=== PATIENT | female | born 1935 | race Caucasian/White ===

== ENCOUNTER 2016-11-01 12:56 | Outpatient (CLI) | payer MEDICARE, OTHER | END 2016-11-01 12:57 | disposition home or self-care (01) | DX: I50.9 Heart failure, unspecified (principal); I08.1 Rheumatic disorders of both mitral and tricuspid valves ==

== ENCOUNTER 2022-09-18 18:24 | Emergency (ER) | payer MEDICARE, OTHER ==
--- NOTE | 2022-09-18 18:42 | ED Physician Documentation ---
History of Present Illness - Stated complaint Stated Complaint: ANXIETY/SOA - Chief complaint Chief Complaint: General - History obtained from History obtained from: Patient - Additonal information Additional information: This is a verenice 87-year-old woman with history of breast cancer, coronary disease with three-vessel bypass approximately 5 to 6 years ago who presents after an episode of feeling out of it with some chest pressure and trouble breathing. She had gone out to dinner with her daughter, and early in the meal the daughter insinuated that she was "a terrible grandmother." After that for some time she felt out of it, numb all over weak and shaky. She is feeling mostly better now. This is never happened to her before. Review of Systems Ten Systems: 10 systems reviewed and negative Constitutional: denies: Fever, Chills Cardiac: reports: Chest pain / pressure. denies: Palpitations Respiratory: denies: Cough PD PAST MEDICAL HISTORY - Present Medications Home Medications: Ambulatory Orders Medication Instructions Recorded Confirmed Amlodipine Besylate [Norvasc] 2.5 mg PO DAILY 09/18/22 09/18/22 Aspirin Chewable [St Kian 1 tab PO DAILY 09/18/22 09/18/22 Aspirin] Levothyroxine Sodium [Levo-T] 1 tab PO DAILY 09/18/22 09/18/22 Metoprolol Tartrate [Lopressor] 25 mg PO DAILY 09/18/22 09/18/22 Pantoprazole Sodium 40 mg PO DAILY 09/18/22 09/18/22 Turmeric/Turmeric Root Extract 1 cap PO DAILY 09/18/22 09/18/22 [Turmeric 500 mg Capsule] - Allergies Allergies/Adverse Reactions: Allergies Allergy/AdvReac Type Severity Reaction Status Date / Time No Known Drug Allergies Allergy Verified 09/18/22 20:01 PD ED PE NORMAL - Vitals Vital signs reviewed: Yes - General General: Alert and oriented X 3, No acute distress - HEENT HEENT: PERRL, EOMI - Neck Neck: Supple, no meningeal sign, No bony TTP - Cardiac Cardiac: RRR, No murmur - Respiratory Respiratory: No respiratory distress, Clear bilaterally - Abdomen Abdomen: Non tender - Extremities Extremities: No edema, No calf tenderness / cord - Neuro Neuro: Alert and oriented X 3, cargo broker 2-12 intact, No motor deficit, No sensory deficit, Normal speech, Other (NIH stroke scale of 0) Eye Opening: Spontaneous Motor: Obeys Commands Verbal: Oriented GCS Score: 15 Results - Vitals Vitals: Vital Signs - 24 hr 09/18/22 09/18/22 09/18/22 18:19 19:50 21:09 Temperature 36.9 C 36.0 C L 37.0 C Heart Rate 73 64 75 Respiratory 11 L 19 18 Rate Blood Pressure 180/63 H 142/45 H 153/67 H O2 Saturation 100 100 100 Oxygen O2 Source Room air - EKG (time done) 1853 Rate: Rate (enter#) (73) Rhythm: NSR [place]: Normal Intervals: Normal LA QRS: Normal Ischemia: Non specific changes - Labs Labs: Laboratory Tests 09/18/22 09/18/22 09/18/22 18:59 18:59 18:59 WBC 6.2 RBC 3.96 L Hgb 11.8 L Hct 36.4 L MCV 91.9 MCH 29.8 MCHC 32.4 RDW 12.0 Plt Count 248 MPV 9.7 Neut # (Auto) 4.2 Lymph # (Auto) 1.3 L [place] # (Auto) 0.5 Eos # (Auto) 0.2 Baso # (Auto) 0.0 Absolute Nucleated RBC 0.00 Nucleated RBC % 0.0 Sodium 137 Potassium 4.0 Chloride 104 Carbon Dioxide 25 Anion Gap 8.0 BUN 27 H Creatinine 1.1 H Estimated GFR (MDRD) 47 L Glucose 151 H Calcium 9.1 Total Bilirubin 0.7 AST 22 ALT 24 Alkaline Phosphatase 51 Troponin I High Sens 15.5 H* Total Protein 6.9 Albumin 3.9 Globulin 3.0 Albumin/Globulin Ratio 1.3 Lipase 64 H 09/18/22 20:19 WBC RBC Hgb Hct MCV MCH MCHC RDW Plt Count MPV Neut # (Auto) Lymph # (Auto) [place] # (Auto) Eos # (Auto) Baso # (Auto) Absolute Nucleated RBC Nucleated RBC % Sodium Potassium Chloride Carbon Dioxide Anion Gap BUN Creatinine Estimated GFR (MDRD) Glucose Calcium Total Bilirubin AST ALT Alkaline Phosphatase Troponin I High Sens 16.5 H* Total Protein Albumin Globulin Albumin/Globulin Ratio Lipase PD MEDICAL DECISION MAKING - ED course ED course: 87-year-old woman presents after an episode most consistent with panic attack given the circumstances, has very mildly elevated troponin on initial evaluation, that said she has chronic renal insufficiency and no real ischemic sounding chest pain and this was repeated without significant interval change. Departure - Departure Disposition: 01 Home, Self Care Clinical Impression: Episode of altered cognition, Renal insufficiency Condition: Good Record reviewed to determine appropriate education?: Yes Comments: The cause of your episode is not completely clear, While it certainly could have been a panic attack, nothing else concerning was found. We did find that you have diminished kidney function, but looking back at old labs as far as 2005, this is not new. We did find a very mild elevation in your troponin level, only one-point above normal, this was rechecked and did not change significantly suggesting that it was from the chronic kidney disease. Call your doctor to arrange a follow-up appointment, make the next available appointment. In the interim, return anytime if worse or if new symptoms develop. Discharge Date/Time: 09/18/22 21:10
[2022-09-18 19:07] LABS: BASOPHILS % (AUTO) 0.7 %; EOSINOPHILS # (AUTO) 0.2 10^3/uL (0.0-0.7); EOSINOPHILS % (AUTO) 2.4 %; HCT - HEMATOCRIT 36.4 % (37.0-47.0); HGB - HEMOGLOBIN 11.8 g/dL (12.0-16.0); LYMPHOCYTES # (AUTO) 1.3 10^3/uL (1.5-3.5); LYMPHOCYTES % (AUTO) 21.8 %; MEAN CORPUSCULAR HEMOGLOBIN 29.8 pg (27.0-31.0); MEAN CORPUSCULAR HGB CONC 32.4 g/dL (32.0-36.0); MEAN CORPUSCULAR VOLUME 91.9 fL (81.0-99.0); MEAN PLATELET VOLUME 9.7 fL (7.9-10.8); MONOCYTES # (AUTO) 0.5 10^3/uL (0.0-1.0); MONOCYTES % (AUTO) 7.3 %; NEUTROPHILS # (AUTO) 4.2 10^3/uL (1.5-6.6); NEUTROPHILS % (AUTO) 67.5 %; PLT - PLATELET COUNT 248 10^3/uL (130-450); RED BLOOD COUNT 3.96 10^6/uL (4.20-5.40); WHITE BLOOD COUNT 6.2 x10^3/uL (4.8-10.8)
[2022-09-18 19:19] LABS: ALBUMIN 3.9 g/dL (3.2-5.5); ALBUMIN/GLOBULIN RATIO 1.3 (1.0-2.2); BILIRUBIN,TOTAL 0.7 mg/dL (0.2-1.0); CALCIUM 9.1 mg/dL (8.5-10.3); CREATININE 1.1 mg/dL (0.4-1.0); TOTAL PROTEIN 6.9 g/dL (6.7-8.2)
--- NOTE | 2022-09-18 20:22 | XRAY Report ---
PROCEDURE: Chest 1 View X-Ray INDICATIONS: Chest Pain TECHNIQUE: One view of the chest was acquired. COMPARISON: None. FINDINGS: Surgical changes and devices: Post CABG change. Lungs and pleura: Diffuse interstitial thickening bilaterally. No dense consolidation, effusion, or pneumothorax. Mediastinum: Mediastinal contours appear normal. Heart size is normal. No central venous congestio n. 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 Otherwise normal osseous structures and overlying soft tissues. IMPRESSION: 1. Diffuse interstitial thickening may be interstitial edema or interstitial pneumonitis. Reviewed by: Alicia Strange MD on 09/18/2022 8:21 PM PST Approved by: Alicia Strange MD on 09/18/2022 8:21 PM PST Station ID: [id number]
[2022-09-18 21:10] VITALS: BP 153/67
== END 2022-09-18 21:10 | disposition home or self-care (01) ==
LOC: EDUNIT# → ED 18:24
DX: N28.9 Disorder of kidney and ureter, unspecified (principal); R41.89 Other symptoms and signs involving cognitive functions and awareness; I25.10 Atherosclerotic heart disease of native coronary artery without angina pectoris; Z95.1 Presence of aortocoronary bypass graft
CPT/HCPCS: 36415; 80053; 83690; 84484; 85025; 93005; 99283; 99284

== ENCOUNTER → 2022-09-18 | Outpatient (CLI) | payer MEDICARE, OTHER | END | disposition critical access hospital (66) | LOC: EMS 17:57 | DX: R06.00 Dyspnea, unspecified (principal); F41.9 Anxiety disorder, unspecified | CPT/HCPCS: A0425; A0429 ==

== ENCOUNTER 2022-11-25 06:33 | Outpatient (CLI) | payer MEDICARE, OTHER | END 2022-11-25 06:34 | disposition short-term general hospital (02) | LOC: EMS 06:33 | DX: I21.09 ST elevation (STEMI) myocardial infarction involving other coronary artery of anterior wall (principal); R07.89 Other chest pain | CPT/HCPCS: A0425; A0433 ==

== ENCOUNTER 2022-11-30 06:11 | Outpatient (CLI) | payer MEDICARE, OTHER | END 2022-11-30 06:12 | disposition short-term general hospital (02) | LOC: EMS 06:11 | DX: R07.89 Other chest pain (principal); R11.0 Nausea | CPT/HCPCS: A0425; A0427 ==

== ENCOUNTER 2024-04-12 14:48 | Outpatient (CLI) | payer MEDICARE, OTHER | END 2024-04-12 23:59 | disposition short-term general hospital (02) | LOC: EMS 14:48 | DX: R07.89 Other chest pain (principal); R00.0 Tachycardia, unspecified; R09.89 Other specified symptoms and signs involving the circulatory and respiratory systems | CPT/HCPCS: A0425; A0427 ==

== ENCOUNTER 2024-04-27 17:57 | Outpatient (CLI) | payer MEDICARE, OTHER | END 2024-04-27 23:59 | disposition short-term general hospital (02) | LOC: EMS 17:57 | DX: R07.9 Chest pain, unspecified (principal) | CPT/HCPCS: A0425; A0427 ==

== ENCOUNTER 2024-05-13 13:46 | Outpatient (CLI) | payer MEDICARE, OTHER | END 2024-05-13 23:59 | disposition E | LOC: EMS 13:46 ==